=== PATIENT | male | born 1935 | race Caucasian/White ===

== ENCOUNTER 2017-02-04 07:36 | Outpatient (CLI) | payer MEDICARE, OTHER ==
[2017-02-04 12:53] LABS: HEMOGLOBIN A1C 0.58 g/dL
[2017-02-04 13:16] LABS: ALBUMIN/GLOBULIN RATIO 1.6 (1.0-2.2); BILIRUBIN,TOTAL 0.6 mg/dL (0.2-1.0); BUN - BLOOD UREA NITROGEN 19 mg/dL (6-20); CALCIUM 9.2 mg/dL (8.5-10.3); CARBON DIOXIDE - CO2 27 mmol/L (21-32); CHLORIDE 104 mmol/L (101-111); CHOLESTEROL 170 mg/dL; GFR - MDRD 72 (>89); GLUCOSE 94 mg/dL (70-100); HDL CHOLESTEROL 43 mg/dL; POTASSIUM 4.2 mmol/L (3.5-5.0); SODIUM 139 mmol/L (135-145); TOTAL PROTEIN 7.3 g/dL (6.7-8.2); TRIGLYCERIDES 214 mg/dL; VLDL CHOLESTEROL 43 mg/dL
== END 2017-02-04 07:37 | disposition home or self-care (01) ==
LOC: LAB.WCP 07:36
PROVIDERS: ATTEND Family Medicine
DX: R73.01 Impaired fasting glucose (principal); E78.5 Hyperlipidemia, unspecified
CPT/HCPCS: 36415; 80053; 80061; 83036

== ENCOUNTER 2017-09-16 08:25 | Outpatient (CLI) | payer MEDICARE, OTHER ==
[2017-09-16 13:53] LABS: ALBUMIN 4.8 g/dL (3.2-5.5); ALBUMIN/GLOBULIN RATIO 1.7 (1.0-2.2); ALKALINE PHOSPHATASE 43 IU/L (42-121); ALT ALANINE AMINOTRANSFERASE 33 IU/L (10-60); AST ASPARTATE AMINOTRANSFERASE 31 IU/L (10-42); BILIRUBIN,TOTAL 0.9 mg/dL (0.2-1.0); BUN - BLOOD UREA NITROGEN 16 mg/dL (6-20); CALCIUM 9.5 mg/dL (8.5-10.3); CARBON DIOXIDE - CO2 26 mmol/L (21-32); CHLORIDE 101 mmol/L (101-111); CHOL/HDL RATIO 3.5 (<5.0); CHOLESTEROL 171 mg/dL; CREATININE 0.9 mg/dL (0.6-1.2); GFR - MDRD 81 (>89); GLUCOSE 106 mg/dL (70-100); HDL CHOLESTEROL 49 mg/dL; LDL CHOLESTEROL,CALCULATED 91 mg/dL; LDL/HDL RATIO 1.9 (<3.6); SODIUM 136 mmol/L (135-145); TOTAL PROTEIN 7.7 g/dL (6.7-8.2); VLDL CHOLESTEROL 31 mg/dL
[2017-09-16 14:17] LABS: HB2 TOTAL 17.1 g/dL; HEMOGLOBIN A1C 0.59 g/dL; HEMOGLOBIN A1C % 5.3 % (4.6-6.2)
== END 2017-09-16 08:26 | disposition home or self-care (01) ==
LOC: LAB.WCP 08:25
PROVIDERS: ATTEND Family Medicine
DX: I25.10 Atherosclerotic heart disease of native coronary artery without angina pectoris (principal); R73.01 Impaired fasting glucose; I10 Essential (primary) hypertension; E78.5 Hyperlipidemia, unspecified
CPT/HCPCS: 36415; 80053; 80061; 83036; 83721

== ENCOUNTER 2019-06-02 10:47 | Outpatient (CLI) | payer MEDICARE, OTHER ==
[2019-06-02 11:20] LABS: BASOPHILS % (AUTO) 0.5 %; EOSINOPHILS # (AUTO) 0.1 10^3/uL (0.0-0.7); EOSINOPHILS % (AUTO) 1.2 %; HGB - HEMOGLOBIN 13.6 g/dL (14.0-18.0); LYMPHOCYTES # (AUTO) 1.1 10^3/uL (1.5-3.5); LYMPHOCYTES % (AUTO) 17.3 %; MEAN CORPUSCULAR HEMOGLOBIN 35.4 pg (27.0-31.0); MEAN CORPUSCULAR HGB CONC 35.2 g/dL (32.0-36.0); MEAN CORPUSCULAR VOLUME 100.5 fL (80.0-94.0); MEAN PLATELET VOLUME 9.2 fL (7.4-11.4); MONOCYTES # (AUTO) 0.7 10^3/uL (0.0-1.0); MONOCYTES % (AUTO) 10.1 %; NEUTROPHILS # (AUTO) 4.6 10^3/uL (1.5-6.6); NEUTROPHILS % (AUTO) 70.4 %; PLT - PLATELET COUNT 319 10^3/uL (130-450); RED BLOOD COUNT 3.84 10^6/uL (4.70-6.10); RED CELL DISTRIBUTION WIDTH 11.8 % (12.0-15.0); WHITE BLOOD COUNT 6.5 x10^3/uL (4.8-10.8)
[2019-06-02 11:47] LABS: ALBUMIN 3.7 g/dL (3.2-5.5); ALBUMIN/GLOBULIN RATIO 0.9 (1.0-2.2); BILIRUBIN,TOTAL 0.9 mg/dL (0.2-1.0); CALCIUM 9.2 mg/dL (8.5-10.3); CREATININE 0.8 mg/dL (0.6-1.2); URIC ACID 6.7 mg/dL (2.6-7.2)
--- NOTE | 2019-06-02 15:43 | XRAY Report ---
Reason: IDIOPATHIC GOUT, UNSPECIFIED SITE Procedure Date: 06/02/2019 Accession Number: [id number] / [id number] Procedure: XR - Foot 2 View RT CPT Code: Final Report FULL RESULT: EXAM: RIGHT FOOT RADIOGRAPHY EXAM DATE: 06/02/2019 11:44 AM. CLINICAL HISTORY: IDIOPATHIC GOUT, UNSPECIFIED SITE. COMPARISON: None. TECHNIQUE: 2 views. FINDINGS: Bones: Normal. No fractures or bone lesions. Joints: Degenerative changes first metatarsophalangeal joint with joint space narrowing, large dorsal osteophyte formation, subchondral sclerosis. Soft Tissues: Achilles tendon spur. No soft tissue swelling. IMPRESSION: 1. DJD first metatarsophalangeal joint with large dorsal spur RADIA
== END 2019-06-02 10:48 | disposition home or self-care (01) ==
LOC: LAB 10:47 → DI 10:48
PROVIDERS: ATTEND Family Medicine
DX: M19.071 Primary osteoarthritis, right ankle and foot (principal); M25.774 Osteophyte, right foot; R05 Cough; M10.00 Idiopathic gout, unspecified site; I10 Essential (primary) hypertension; E78.5 Hyperlipidemia, unspecified; M54.5 Low back pain
CPT/HCPCS: 36415; 80053; 84550; 85025; 85651

== ENCOUNTER 2020-10-22 08:51 | Outpatient (CLI) | payer MEDICARE, OTHER | END 2020-10-22 08:52 | disposition critical access hospital (66) | LOC: EMS 08:51 | PROVIDERS: ATTEND Emergency Medicine | DX: Z04.89 Encounter for examination and observation for other specified reasons (principal) | CPT/HCPCS: A0425; A0429 ==

== ENCOUNTER 2020-10-22 09:14 | Inpatient (IN) | payer MEDICARE, OTHER ==
[2020-10-22] MEDS ORDERED: SODIUM CHLORIDE 0.9% 1,000 ML IV STA (09:42)
--- NOTE | 2020-10-22 09:44 | ED Physician Documentation ---
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 He had his palpitations on and off this morning. Medics found the patient on the floor with his pants soaked with urine urine on the floor and some confusion. The patient's neighbor was the one that discovered the patient on the floor. The neighbor recognized there had been no newspaper pickup for 2 days and took his pérez and opened his neighbors door to find that he was on the floor. He called 911. Review of Systems Constitutional: denies: Fever Eyes: denies: Decreased vision Ears: denies: Ear pain Nose: denies: Rhinorrhea / runny nose, Congestion Throat: denies: Sore throat Cardiac: reports: Palpitations. denies: Chest pain / pressure, Pedal edema, Calf pain Respiratory: denies: Dyspnea, Cough, Wheezing GI: denies: Abdominal Pain, Nausea, Vomiting : denies: Dysuria, Frequency PD PAST MEDICAL HISTORY - Past Medical History Cardiovascular: High cholesterol, [place], Other Respiratory: None Endocrine/Autoimmune: None GI: None : None HEENT: Chronic vision loss, Chronic hearing loss Psych: None Musculoskeletal: Osteoarthritis, Gout, Chronic back pain Derm: None - Past Surgical History General: Colonoscopy Ortho: Spine surgery Cardiovascular: Coronary stent HEENT: Tonsil/Adenoidectomy - Present Medications Home Medications: Ambulatory Orders Medication Instructions Recorded Confirmed Aspirin 325 mg PO DAILY 08/23/14 10/22/20 Hydrochlorothiazide 25 mg PO DAILY 08/23/14 10/22/20 Metoprolol Succinate 50 mg PO BID 08/23/14 10/22/20 Simvastatin 20 mg PO DAILY 08/23/14 08/23/14 Tramadol HCl/Acetaminophen 1 each PO BID 08/23/14 10/22/20 [Ultracet Tablet] lisinopriL [Lisinopril] 10 mg PO DAILY 08/23/14 08/23/14 - Allergies Allergies/Adverse Reactions: Allergies Allergy/AdvReac Type Severity Reaction Status Date / Time No Known Drug Allergies Allergy Verified 10/22/20 09:32 - Social History Does the pt smoke?: No Smoking Status: Never smoker PD ED PE NORMAL - Vitals Vital signs reviewed: Yes (Hypertensive) - General General: No acute distress, Well developed/nourished, Other (The patient is oriented to place and can carry on a conversation extensively I did take him a while to answer who the president was and what year it was.) - HEENT HEENT: Atraumatic, PERRL, EOMI - Neck Neck: Supple, no meningeal sign, No bony TTP - Cardiac Cardiac: RRR, No murmur - Respiratory Respiratory: No respiratory distress, Clear bilaterally - Abdomen Abdomen: Normal bowel sounds, Soft, Non tender, Non distended, No organomegaly - Back Back: No CVA TTP, No spinal TTP - Derm Derm: Normal color, Warm and dry, No rash - Extremities Extremities: No deformity, No edema - Neuro Neuro: Alert and oriented X 3, bi architect 2-12 intact, No motor deficit, No sensory deficit, Normal speech Eye Opening: Spontaneous Motor: Obeys Commands Verbal: Oriented GCS Score: 15 - Psych Psych: Normal mood, Normal affect Results - Vitals Vitals: Vital Signs - 24 hr 10/22/20 10/22/20 09:17 12:00 Temperature 36.0 C L Heart Rate 76 72 Respiratory 18 17 Rate Blood Pressure 154/94 H 153/90 H O2 Saturation 100 98 Oxygen O2 Source Room air - EKG (time done) 0945 Rate: Rate (enter#) Rhythm: NSR [place]: LAD Ischemia: Non specific changes Compare to prior EKG: Old EKG unavailable Computer interpretation: Agree with computer - Labs Labs: Laboratory Tests 10/22/20 10/22/20 10/22/20 09:52 09:52 09:52 WBC 8.2 RBC 3.99 L Hgb 14.3 Hct 41.2 L MCV 103.3 H MCH 35.8 H MCHC 34.7 RDW 13.7 Plt Count 145 MPV 9.5 Neut # (Auto) 6.7 H Lymph # (Auto) 0.6 L [place] # (Auto) 0.7 Eos # (Auto) 0.2 Baso # (Auto) 0.0 Absolute Nucleated RBC 0.00 Band Neuts % (Manual) Not Reportable Abnorm Lymph % (Manual) Not Reportable Nucleated RBC % 0.0 Neutrophils # (Manual) Not Reportable Lymphocytes # (Manual) Not Reportable Monocytes # (Manual) Not Reportable Eosinophils # (Manual) Not Reportable Basophils # (Manual) Not Reportable Differential Comment MANUAL=AUTO DIFF Manual Slide Review Indicated Platelet Estimate NORMAL (130-450,000) Platelet Morphology NORMAL APPEARANCE RBC Morph Micro Appear NORMAL APPEARANCE Sodium 139 Potassium 4.2 Chloride 104 Carbon Dioxide 16 L Anion Gap 19.0 H BUN 16 Creatinine 1.0 Estimated GFR (MDRD) 71 L Glucose 159 H Lactic Acid Calcium 9.3 Total Bilirubin 2.3 H AST 96 H ALT 55 Alkaline Phosphatase 55 Troponin I High Sens 32.9 H* Total Protein 7.2 Albumin 4.4 Globulin 2.8 Albumin/Globulin Ratio 1.6 Lipase 26 Urine Color Urine Clarity Urine pH Ur Specific [place] Urine Protein Urine Glucose (UA) Urine Ketones Urine Occult Blood Urine Nitrite Urine Bilirubin Urine Urobilinogen Ur Leukocyte Esterase Urine RBC Urine WBC Ur Squamous Epith Cells Urine Bacteria Ur Microscopic Review Urine Culture Comments Nasal Adenovirus (PCR) Nasal B. parapertussis DNA (PCR) Nasal Coronavir 229E PCR Nasal Coronavir HKU1 PCR Nasal Coronavir NL63 PCR Nasal Coronavir OC43 PCR Nasal Enterovir/Rhinovir PCR Nasal Influenza B PCR Nasal Influenza A PCR Nasal Parainfluen 1 PCR Nasal Parainfluen 2 PCR Nasal Parainfluen 3 PCR Nasal Parainfluen 4 PCR Nasal RSV (PCR) Nasal B.pertussis DNA PCR Nasal C.pneumoniae (PCR) Brown Human Metapneumo PCR Nasal M.pneumoniae (PCR) Nasal SARS-CoV-2 (PCR) 10/22/20 10/22/20 10/22/20 09:52 11:16 12:15 WBC RBC Hgb Hct MCV MCH MCHC RDW Plt Count MPV Neut # (Auto) Lymph # (Auto) [place] # (Auto) Eos # (Auto) Baso # (Auto) Absolute Nucleated RBC Band Neuts % (Manual) Abnorm Lymph % (Manual) Nucleated RBC % Neutrophils # (Manual) Lymphocytes # (Manual) Monocytes # (Manual) Eosinophils # (Manual) Basophils # (Manual) Differential Comment Manual Slide Review Platelet Estimate Platelet Morphology RBC Morph Micro Appear Sodium Potassium Chloride Carbon Dioxide Anion Gap BUN Creatinine Estimated GFR (MDRD) Glucose Lactic Acid 2.3 H Calcium Total Bilirubin AST ALT Alkaline Phosphatase Troponin I High Sens Total Protein Albumin Globulin Albumin/Globulin Ratio Lipase Urine Color YELLOW Urine Clarity CLEAR Urine pH 6.0 Ur Specific [place] 1.025 Urine Protein TRACE Urine Glucose (UA) NEGATIVE Urine Ketones >=80 H Urine Occult Blood MODERATE H Urine Nitrite NEGATIVE Urine Bilirubin NEGATIVE Urine Urobilinogen 0.2 (NORMAL) Ur Leukocyte Esterase NEGATIVE Urine RBC 6-10 H Urine WBC 0-3 Ur Squamous Epith Cells NONE SEEN Urine Bacteria Rare Ur Microscopic Review INDICATED Urine Culture Comments NOT INDICATED Nasal Adenovirus (PCR) NOT DETECTED Nasal B. parapertussis DNA (PCR) DETECTED A Nasal Coronavir 229E PCR NOT DETECTED Nasal Coronavir HKU1 PCR NOT DETECTED Nasal Coronavir NL63 PCR NOT DETECTED Nasal Coronavir OC43 PCR NOT DETECTED Nasal Enterovir/Rhinovir PCR NOT DETECTED Nasal Influenza B PCR NOT DETECTED Nasal Influenza A PCR NOT DETECTED Nasal Parainfluen 1 PCR NOT DETECTED Nasal Parainfluen 2 PCR NOT DETECTED Nasal Parainfluen 3 PCR NOT DETECTED Nasal Parainfluen 4 PCR NOT DETECTED Nasal RSV (PCR) NOT DETECTED Nasal B.pertussis DNA PCR NOT DETECTED Nasal C.pneumoniae (PCR) NOT DETECTED Brown Human Metapneumo PCR NOT DETECTED Nasal M.pneumoniae (PCR) NOT DETECTED Nasal SARS-CoV-2 (PCR) NOT DETECTED 10/22/20 12:30 WBC RBC Hgb Hct MCV MCH MCHC RDW Plt Count MPV Neut # (Auto) Lymph # (Auto) [place] # (Auto) Eos # (Auto) Baso # (Auto) Absolute Nucleated RBC Band Neuts % (Manual) Abnorm Lymph % (Manual) Nucleated RBC % Neutrophils # (Manual) Lymphocytes # (Manual) Monocytes # (Manual) Eosinophils # (Manual) Basophils # (Manual) Differential Comment Manual Slide Review Platelet Estimate Platelet Morphology RBC Morph Micro Appear Sodium Potassium Chloride Carbon Dioxide Anion Gap BUN Creatinine Estimated GFR (MDRD) Glucose Lactic Acid Calcium Total Bilirubin AST ALT Alkaline Phosphatase Troponin I High Sens 38.0 H* Total Protein Albumin Globulin Albumin/Globulin Ratio Lipase Urine Color Urine Clarity Urine pH Ur Specific [place] Urine Protein Urine Glucose (UA) Urine Ketones Urine Occult Blood Urine Nitrite Urine Bilirubin Urine Urobilinogen Ur Leukocyte Esterase Urine RBC Urine WBC Ur Squamous Epith Cells Urine Bacteria Ur Microscopic Review Urine Culture Comments Nasal Adenovirus (PCR) Nasal B. parapertussis DNA (PCR) Nasal Coronavir 229E PCR Nasal Coronavir HKU1 PCR Nasal Coronavir NL63 PCR Nasal Coronavir OC43 PCR Nasal Enterovir/Rhinovir PCR Nasal Influenza B PCR Nasal Influenza A PCR Nasal Parainfluen 1 PCR Nasal Parainfluen 2 PCR Nasal Parainfluen 3 PCR Nasal Parainfluen 4 PCR Nasal RSV (PCR) Nasal B.pertussis DNA PCR Nasal C.pneumoniae (PCR) Brown Human Metapneumo PCR Nasal M.pneumoniae (PCR) Nasal SARS-CoV-2 (PCR) Procedures - IVC sono (time) 0935 Bedside IVC sono: IVC measures (cm) (0.82), Dehydration (est 2+ liter deficit) PD MEDICAL DECISION MAKING - ED course Complexity details: reviewed results, re-evaluated patient, considered differential, d/w patient ED course: 85-year-old male on no medications no allergies developed palpitations this morning the recurred and he was found on his floor by his neighbors. The patient is found to be dehydrated on interrogation the inferior vena cava and saline is begun. A work-up is ensued.He has a widened mediastinum on plain film of the chest looks like a torturous old aorta. He has elevation his troponin as well and we have done a CT angio of the chest to look at the aorta. With anticipation of admission a respiratory PCR is obtained to rule out COVID-19 for protection of the patient and staff. The patient's CT angio of the chest showed a normal-appearing aorta. The work up implicated the heart with a mild elevation in the sensitive troponin. The patient appears to be responding to IV hydration. Infectious etiology was not discovered on routine labs but the Resp PCR showed pertusis and the patient appears particularly symptom free. Dr. Salinas is consulted in the case and agrees to admit the patient to observation for his syncope and requests we obtain CT of the head. Departure - Departure Disposition: ED Place in Observation Clinical Impression: Syncope and collapse, Dehydration, Myocardial ischemia Condition: Stable
[2020-10-22 10:03] LABS: BASOPHILS % (AUTO) 0.1 %; EOSINOPHILS # (AUTO) 0.2 10^3/uL (0.0-0.7); EOSINOPHILS % (AUTO) 1.8 %; HCT - HEMATOCRIT 41.2 % (42.0-52.0); HGB - HEMOGLOBIN 14.3 g/dL (14.0-18.0); LYMPHOCYTES # (AUTO) 0.6 10^3/uL (1.5-3.5); LYMPHOCYTES % (AUTO) 7.5 %; MEAN CORPUSCULAR HEMOGLOBIN 35.8 pg (27.0-31.0); MEAN CORPUSCULAR HGB CONC 34.7 g/dL (32.0-36.0); MEAN CORPUSCULAR VOLUME 103.3 fL (80.0-94.0); MEAN PLATELET VOLUME 9.5 fL (7.4-11.4); MONOCYTES # (AUTO) 0.7 10^3/uL (0.0-1.0); MONOCYTES % (AUTO) 8.1 %; NEUTROPHILS # (AUTO) 6.7 10^3/uL (1.5-6.6); NEUTROPHILS % (AUTO) 82.3 %; PLT - PLATELET COUNT 145 10^3/uL (130-450); RED BLOOD COUNT 3.99 10^6/uL (4.70-6.10); RED CELL DISTRIBUTION WIDTH 13.7 % (12.0-15.0); WHITE BLOOD COUNT 8.2 x10^3/uL (4.8-10.8)
[2020-10-22 10:08] LABS: SLIDE REVIEW? Indicated
[2020-10-22 10:17] LABS: ALBUMIN 4.4 g/dL (3.2-5.5); ALBUMIN/GLOBULIN RATIO 1.6 (1.0-2.2); BILIRUBIN,TOTAL 2.3 mg/dL (0.2-1.0); CALCIUM 9.3 mg/dL (8.5-10.3); POTASSIUM 4.2 mmol/L (3.5-5.0); TOTAL PROTEIN 7.2 g/dL (6.7-8.2)
--- NOTE | 2020-10-22 10:22 | XRAY Report ---
PROCEDURE: Chest 1 View X-Ray INDICATIONS: chest pain TECHNIQUE: One view of the chest was acquired. COMPARISON: 05/02/2015 FINDINGS: Surgical changes and devices: None. Lungs and pleura: No pleural effusions or pneumothorax. Lungs are clear. Mediastinum: Aorta is tortuous and unfolded. Contour is more prominent than on the previous study, al though this may be secondary to portable technique. Heart size is normal. Bones and chest wall: No suspicious bony lesions. Overlying soft tissues appear unremarkable. IMPRESSION: 1. Tortuous, unfolded aorta. If clinically suspect dissection, would recommend CT angiography of the aorta. 2. No evidence acute pulmonary process. Above discussed with ROSA FRIAS at the time of dictation on 10/22/2020 at 1020 hours. Reviewed by: Joaquim Schrader MD on 10/22/2020 10:20 AM PDT Approved by: Joaquim Schrader MD on 10/22/2020 10:20 AM PDT Station ID: [id number]
[2020-10-22 10:41] LABS: DIFFERENTIAL COMMENT MANUAL=AUTO DIFF; PLATELET ESTIMATE, MANUAL NORMAL (130-450,000) (NORMAL); PLATELET MORPHOLOGY NORMAL APPEARANCE (NORMAL); RBC MORPHOLOGY (MULTIPLE) NORMAL APPEARANCE (NORMAL)
[2020-10-22] MEDS ORDERED: IOVERSOL 320 100 ML VIAL IVP ONE ×2 (10:56→11:50)
--- NOTE | 2020-10-22 11:43 | CT Report ---
PROCEDURE: ANGIO CHEST W/WO INDICATIONS: Evaluation of widened mediastinum on chest radiography earlier today. This exam is inte nded to exclude aortic dissection or aneurysm suggested by widened mediastinum on chest radiography. CONTRAST: IV CONTRAST: Optiray 320 ml: 80 PO CONTRAST: *NO PO CONTRAST TECHNIQUE: After the administration of intravenous contrast, 2 mm thick sections acquired from the pulmonary api simran to the posterior costophrenic angles. 3-dimensional maximum intensity projection (MIP) coronal a nd sagittal reformats were then acquired through the thorax. For radiation dose reduction, the follow ing was used: automated exposure control, adjustment of mA and/or kV according to patient size. COMPARISON: Same day chest radiograph FINDINGS: Image quality: Excellent. Aorta: Tortuous but nonaneurysmal thoracic aorta with atherosclerotic plaque and calcification beginn ing at the level of the arch and extending through the entire distal aorta. No hemodynamically signif icant stenosis of the aorta. Atherosclerotic plaque and calcification extend into the arch branch ves da origins. Lungs and pleura: Lungs are clear. No pleural effusions or pneumothorax. Central and peripheral ai rways are patent. Mediastinum: Normal heart size. No pericardial effusion. Four-vessel coronary atherosclerosis. No med iastinal or hilar adenopathy. Thoracic aorta is normal in caliber and enhancement. Esophagus is nor mal in caliber, without hiatal hernia. Bones and chest wall: No suspicious bony lesions. Ribs and thoracic spine appear intact throughout. The thyroid is normal. No axillary or supraclavicular adenopathy. Abdomen: Visualized upper abdominal solid organs appear normal in the early arterial phase of enhanc ement. IMPRESSION: Tortuous and atherosclerotic but nonaneurysmal thoracic aorta with no findings of dissection or other acute process in the chest. Moderate 4 vessel coronary atherosclerosis. At least mild to moderate atherosclerotic calcification of the arch branch vessels and major visceral branches of the abdominal aorta. Reviewed by: Zachary Cadena MD on 10/22/2020 11:41 AM PDT Approved by: Zachary Cadena MD on 10/22/2020 11:41 AM PDT Station ID: [id number]
[2020-10-22 12:21] LABS: B. PARAPERTUSSIS- RESP PCR PAN DETECTED; B. PERTUSSIS- RESP PCR PANEL NOT DETECTED; C. PNEUMONIAE- RESP PCR PANEL NOT DETECTED; CORONAVIRUS 229E-RESP PCR NOT DETECTED; CORONAVIRUS HKU1-RESP PCR NOT DETECTED; CORONAVIRUS NL63-RESP PCR NOT DETECTED; CORONAVIRUS OC43-RESP PCR NOT DETECTED; HUMAN METAPNEUMOVIRUS NOT DETECTED; INFLUENZA A- RESP PCR PANEL NOT DETECTED; INFLUENZA B - RESP PCR PANEL NOT DETECTED; M. PNEUMONIAE- RESP PCR PANEL NOT DETECTED; PARAINFLUENZA VIRUS 1 NOT DETECTED; PARAINFLUENZA VIRUS 2 NOT DETECTED; PARAINFLUENZA VIRUS 3 NOT DETECTED; PARAINFLUENZA VIRUS 4 NOT DETECTED; RHINOVIRUS/ENTEROVIRUS NOT DETECTED; RSV- RESP PCR PANEL NOT DETECTED; SARS-CoV-2 -RESP PCR PANEL NOT DETECTED
[2020-10-22 12:25] LABS: GLUCOSE, URINE (UA) NEGATIVE (NEGATIVE); KETONES,URINE (UA) >=80 mg/dL (NEGATIVE); LEUKOCYTE ESTERASE, URINE NEGATIVE (NEGATIVE); NITRITE,URINE NEGATIVE (NEGATIVE); OCCULT BLOOD,URINE MODERATE (NEGATIVE); PROTEIN,URINE TRACE mg/dL (NEGATIVE); UROBILINOGEN,URINE 0.2 (NORMAL) E.U./dL (NORMAL)
[2020-10-22 12:31] LABS: CLARITY,URINE CLEAR (CLEAR)
[2020-10-22 12:33] LABS: BILIRUBIN,URINE NEGATIVE (NEGATIVE); ICTOTEST,URINE NEGATIVE
[2020-10-22 12:40] LABS: BACTERIA,URINE Rare /HPF (None Seen); SQUAMOUS EPITHELIAL CELL,UR NONE SEEN (<= Few); WBC,URINE 0-3 /HPF (0-3)
--- NOTE | 2020-10-22 14:34 | CT Report ---
PROCEDURE: HEAD WO INDICATIONS: Acute altered mental status TECHNIQUE: Noncontrast 4.5 mm thick angled axial sections acquired from the foramen magnum to the vertex. For r adiation dose reduction, the following was used: automated exposure control, adjustment of mA and/or kV according to patient size. COMPARISON: None FINDINGS: Image quality: Excellent. CSF spaces: Basal cisterns are patent. No extra-axial fluid collections. The ventricles are symmet curtis in size and shape. Brain: No intracranial bleeds or masses. There is cerebral volume loss for age, with resultant vent ricular and sulcal prominence. There are periventricular and deep white matter chronic small vessel ischemic changes. There is intracranial internal carotid artery and vertebral artery atherosclerosis . Skull and face: Calvarium appears intact, without suspicious lesions. Calvarium is intact, without s uspicious lesions. Chronic appearing bilateral nasal bone fractures. Sinuses: Visualized sinuses and mastoids are clear. IMPRESSION: No acute intracranial disease process. Reviewed by: Hayley Gutierrez MD, PhD on 10/22/2020 2:32 PM PDT Approved by: Hayley Gutierrez MD, PhD on 10/22/2020 2:32 PM PDT Station ID: [id number]
[2020-10-22] MEDS ORDERED: ACETAMINOPHEN 325 MG TABLET PO PRN (14:40)
[2020-10-22] MEDS ORDERED: ONDANSETRON ODT 4 MG TABLET TL PRN (14:40)
[2020-10-22] MEDS ORDERED: SODIUM CHLORIDE FLUSH 0.9% 10 ML SYRINGE IVP PRN (14:40)
[2020-10-22] MEDS ORDERED: LACTATED RINGERS 1,000 ML IV SCH (15:00)
--- NOTE | 2020-10-22 15:23 | HISTORY & PHYSICAL EXAMINATION ---
Chief Complaint - Chief Complaint Chief Complaint: Confusion History of Present Illness - Admitted From Admitted From:: Home - History Obtained From Records Reviewed: Yes History obtained from: Patient, ER Physician, EMR Exam Limitations: Patient is confused - History of Present Illness HPI Comment/Other: This is a 85-year-old male with what appears to be a past medical history significant for hypertension who presents today from home after being found on the ground by his neighbor. History the patient is limited as he is confused. He tells me that he has been in the hospital now for about 3 days. He cannot tell me why he is here other than that he is sick. When I tell him that he has only been here for a few hours, he once again is adamant that he has been here for at least 2 to 3 days. He does admit to feeling confused. He reports no chest pain, dyspnea, fever, chills. Denies any abdominal pain, nausea, vomiting, dysuria, urgency. Reports no focal weakness, headache, change in vision. He tells me he has no significant medical history and denies any cardiac disease. He is currently not taking any medications. He denies a history of seizures. He lives at home alone right now as his is at a nursing facility and [place]. He tells me that he normally is quite active and independent. He still drives. The patient told the ER provider that when his cat went into the attic this morning, he crawled up into the ladder and developed palpitations and so he stopped to rest and when the palpitations resolved, he went back down to lay on the floor. Neighbor reportedly found him on the floor and when EMS got there, they found him incontinent of urine, weak and confused. In the emergency department, he is found to be afebrile, heart rate in the 70s, blood pressure in the 150s over 80s. He was not tachypneic and saturating well on room air. His labs were significant for a bicarbonate of 16, anion gap of 19. His lactic acid was 2.3. AST was 96 and ALT was 55. His initial troponin was 32.9 and repeat had increased to 38. His urinalysis revealed moderate occult blood and 2-10 RBCs. 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 His chest x-ray was unremarkable. He underwent a CT angiogram given the appearance of the aorta on chest x-ray and this revealed no acute abnormalities. CT of the head was unremarkable. Given the patient's confusion, elevated troponin, medicine was consulted for admission. I did discuss goals of care with patient and he states that he would want to be DNR. He states the important thing for him is his quality of life. We dis cussed that at his age, he likely would not have the same quality of life as he currently has if he were to have a cardiac arrest. We discussed that being a DNR would likely be within his wishes and he was agreeable to this. History - Past Medical History Cardiovascular: reports: High cholesterol Respiratory: reports: None Endocrine/Autoimmune: reports: None GI: reports: None : reports: None HEENT: reports: Chronic vision loss, Chronic hearing loss Psych: reports: None Musculoskeletal: reports: Osteoarthritis, Gout, Chronic back pain Derm: reports: None MRSA Hx?: No - Past Surgical History General: reports: Colonoscopy Ortho: reports: Spine surgery Cardiovascular: reports: Coronary stent HEENT: reports: Tonsil/Adenoidectomy - Family & Social History Family History Comment/Other: He reports both his parents at an older age due to cardiac problems. They were both smokers. Living arrangement: At home Living Situation: Alone Social History Notes: He currently lives at home alone as his is at a nursing facility in [place]. He denies smoking. He reports drinking a glass of scotch on a daily basis. 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 Meds/Allgy - Home Medications Home Medications: Ambulatory Orders Medication Instructions Recorded Confirmed No Known Home Medications 10/22/20 10/22/20 - Allergies Allergies/Adverse Reactions: Allergies Allergy/AdvReac Type Severity Reaction Status Date / Time No Known Drug Allergies Allergy Verified 10/22/20 09:32 Review of Systems - Constitutional Constitutional: denies: Fatigue, Fever, Chills, Weakness - Eyes Eyes: denies: Blurred vision - Cardiovascular Cariovascular: denies: Palpitations, Chest pain, Syncope, Exertional dyspnea, D ecr. exercise tolerance - Respiratory Respiratory: denies: Cough, SOB at rest, SOB with exertion - Gastrointestinal Gastrointestinal: denies: Abdominal pain, Diarrhea, Nausea, Vomiting - Genitourinary Genitourinary: denies: Dysuria, Frequency, Urgency, Hematuria - Musculoskeletal Musculoskeletal: denies: Limited range of motion - Neurological Neurological: reports: Other (Confusion.). denies: General weakness, Focal weakness, Headache, Dizziness, Numbness - Hematologic/Lymphatic Hematologic/Lymphatic: denies: Anemia - All Other Systems All Other Systems: reports: Reviewed and negative Prior Level of Functionality: He reports being independent with his ADLs. Exam - Vital Signs Reviewed Vital Signs: Yes Vital Signs: Vital Signs x48h Temp Pulse Resp BP Pulse Ox 10/22/20 14:29 80 20 151/84 H 99 10/22/20 12:00 72 17 153/90 H 98 10/22/20 09:17 36.0 C L 76 18 154/94 H 100 - Physical Exam General Appearance: positive: No acute distress, Alert Eyes Bilateral: positive: Normal inspection, PERRL, Conjunctivae nml ENT: positive: Dry mucous membranes. negative: No signs of dehydration Neck: positive: Nml inspection Respiratory: positive: No respiratory distress. negative: Wheezes, Rales, Rhonchi Cardiovascular: positive: Regular rate & rhythm, No murmur. negative: Tachycardia Abdomen: positive: Non-tender, No distention. negative: Tenderness, Guarding, Rebound Skin: positive: Warm, Dry Extremities: positive: No pedal edema Neurologic/Psychiatric: positive: Other (He is oriented to self and location but he does not know which hospital. He knows it is October but thought it was 2019. He is able to move all 4 extremities without any obvious focal deficits.). negative: Motor nml, Disoriented to person, Facial droop, Slurred/abnml speech Conclusion/Plan - Problem List (1) Altered mental status Conclusion/Plan: He is currently confused although the etiology of this is not clear. He may potentially be postictal if he had a seizure earlier this morning. CT the head was unremarkable. There is no obvious evidence of infection at this time. We will check ammonia, TSH. We will avoid sedatives. (2) Syncope and collapse Conclusion/Plan: His history is concerning for syncope. He may have also potentially had a seizure given the urinary incontinence. His EKG reveals a sinus rhythm with a left anterior fascicular block. No ischemic changes. We will check orthostatics and monitor him on telemetry. Will obtain echocardiogram. We will observe overnight for evidence of seizures. His CT of the head was fortunately unremarkable. We cannot obtain MRI as it is not available at our facility. We will check a CK given his mildly elevated AST. (3) Elevated troponin Conclusion/Plan: His troponin is mildly elevated. His EKG did not suggest ischemia. Suspect this is likely demand ischemia. We will trend his troponin and monitor on telemetry. Check echocardiogram. (4) Hypertension Conclusion/Plan: He is currently hypertensive with systolic in the 150s. Although he denies being on any medication at home, it appears he is on a thiazide and metoprolol. We will resume these once confirmed by pharmacy. (5) Dehydration Conclusion/Plan: He does appear dehydrated on exam and lactic acid is mildly elevated. His AST is also slightly elevated which is concerning for possible rhabdomyolysis. He has already received 2 L of IV fluids in the emergency department. We will continue him on maintenance IV fluids. Recheck lactic. We will check a CK. - Lab Results Lab results reviewed: Yes Fish Bones: 10/22/20 09:52 10/22/20 09:52 - Diagnostic Imaging Results Diagnostic Imaging Results: positive: Final report reviewed - EKG Results EKG Interpreted Independently: Yes EKG Findings: His EKG reveals a sinus rhythm with a left anterior fascicular block. No ischemic changes. Core Measures - Anticipated LOS I expect patient to be DC'd or transferred within 96 hours.: Yes - Issues Hospital Issues and Management Plan: 85-year-old male presents after being found down at home by EMS. He is found to be confused and have elevated troponin. We will place in observation for further work-up and IV hydration. - DVT/VTE - Prophylaxis VTE/DVT Device ordered at admit?: Yes VTE/DVT Prophylaxis med ordered at admit?: Yes
--- NOTE | 2020-10-22 16:10 | PHARMACY PROGRESS NOTE ---
- Best Possible Medication History Admit Date and Time: 10/22/20 1505 Processed by: Pharmacy Medication History completed: Yes Patient Interview: Completed As the person ultimately responsible for medication therapy, providers are able to order a medication from an existing home medication list in [facility] via the "Reconcile Routine" prior to Confirmation of that medication by field support specialist. Such practice is discouraged except when the physician, in their clinical joselo gment, deems that a medical need exists for a medication without regard to previous use.
[2020-10-22] MEDS: LACTATED RINGERS 1,000 ML IV SCH ×2 (16:42→20:44)
[2020-10-22] MEDS: SODIUM CHLORIDE FLUSH 0.9% 10 ML SYRINGE IVP SCH (16:42)
[2020-10-23] MEDS: SODIUM CHLORIDE FLUSH 0.9% 10 ML SYRINGE IVP SCH ×4 (00:18→23:45)
[2020-10-23] MEDS: LACTATED RINGERS 1,000 ML IV SCH ×5 (01:44→22:30)
[2020-10-23 05:27] LABS: BASOPHILS % (AUTO) 0.1 %; EOSINOPHILS % (AUTO) 0.3 %; HCT - HEMATOCRIT 38.2 % (42.0-52.0); HGB - HEMOGLOBIN 13.6 g/dL (14.0-18.0); LYMPHOCYTES # (AUTO) 1.2 10^3/uL (1.5-3.5); LYMPHOCYTES % (AUTO) 17.1 %; MEAN CORPUSCULAR HEMOGLOBIN 36.3 pg (27.0-31.0); MEAN CORPUSCULAR HGB CONC 35.6 g/dL (32.0-36.0); MEAN CORPUSCULAR VOLUME 101.9 fL (80.0-94.0); MEAN PLATELET VOLUME 9.5 fL (7.4-11.4); MONOCYTES # (AUTO) 0.5 10^3/uL (0.0-1.0); MONOCYTES % (AUTO) 7.6 %; NEUTROPHILS # (AUTO) 5.3 10^3/uL (1.5-6.6); NEUTROPHILS % (AUTO) 74.5 %; PLT - PLATELET COUNT 146 10^3/uL (130-450); RED BLOOD COUNT 3.75 10^6/uL (4.70-6.10); RED CELL DISTRIBUTION WIDTH 13.5 % (12.0-15.0); WHITE BLOOD COUNT 7.1 x10^3/uL (4.8-10.8)
[2020-10-23 05:42] LABS: CALCIUM 9.1 mg/dL (8.5-10.3); CREATININE 0.7 mg/dL (0.6-1.2); POTASSIUM 3.7 mmol/L (3.5-5.0)
[2020-10-23] MEDS: ENOXAPARIN 40 MG/0.4 ML SYRINGE SUBQ SCH (08:49)
[2020-10-23] MEDS ORDERED: AZITHROMYCIN 250 MG TABLET PO STA (10:32)
--- NOTE | 2020-10-23 10:37 | PROVIDER PROGRESS NOTE ---
Assessment/Plan - Problem List (1) Rhabdomyolysis Assessment/Plan: The CK was 2570 at admission and is still elevated today at 1821. Will admit to Inpt status. Continue iv fluids. Follow CK daily. Avoid nephrotoxins. (2) Bordetella parapertussis infection Assessment/Plan: His admission Resp panel was done to screen for COVID. COVID result is neg, but he is pos for Bordetella Parapertussis. I contacted Kathy Wilson, [facility] with this result, DO will be notified. He has a deep, nonproductive cough which he claims is just "clearing his throat". He is not desaturating. A CXR was read as no infiltrate, but the pt is dehydrated, so there could be an infiltrate show up once he is hydrated. Resp isolation precautions ordered. Will treat with a course of Zithromax. Will repeat CXR tomorrow. (3) Collapse Assessment/Plan: He was "found down" by neighbor. No syncope or seizure was winessed, but he was incontinent of urine. If he had had a whoopong cough paroxysm, causing hypoxia, may have had a seizure. An echo is pending, for work-up of possible syncope. Telemetry continues. Will start to check orthostatic VS, now that he is more awake. Will also get PT eval. (4) Dehydration Assessment/Plan: He was prerenal by labs and remains so. Continue iv fluids. Avoid nephrotoxins. (5) Altered mental status Qualifiers: Altered mental status type: disorientation Qualified Code(s): R41.0 - Disorientation, unspecified Assessment/Plan: He was confused at admission. Today the DPOA was here and he could see the amount of memory trouble the pt had. I suspect there is dementia, since he said "I don't know" to nearly every question I asked the patient. He had no knowledge of how he ended up on the floor of his condo. He thinks he takes no meds. He does not know the3 name of his PCP. Will get OT consult for cognitive eval. I suspect there will be no more driving a vehicle allowed, which I told the DPOA, at bedside today. The [facility] is already arranging a different housing arrangement: to live with his at [facility], where she has been for a year. - Current Meds Current Meds: Current Medications Generic Name Dose Route Start Last Admin Trade Name Freq PRN Reason Stop Dose Admin Enoxaparin Sodium 40 mg 10/23/20 09:00 10/23/20 08:49 Enoxaparin 40 Mg/0.4 Ml Syringe SUBQ 40 mg DAILY STEVE Administration Lactated Ringer's 1,000 mls @ 200 mls/hr 10/22/20 16:04 10/23/20 06:55 Lr IV 200 mls/hr .Q5H STEVE Administration Sodium Chloride 10 ml 10/22/20 17:00 10/23/20 08:49 Sodium Chloride Flush 0.9% 10 Ml Syringe IVP Not Given 0100,0900,1700 STEVE - Lab Result Fish Bone Diagrams: 10/23/20 05:14 10/23/20 05:14 - Additional Planning My Orders: My Active Orders 10/23/20 10:32 Azithromycin [Zithromax] 500 mg PO ONCE STA 10/24/20 09:00 Azithromycin [Zithromax] 250 mg PO DAILY Subjective - Subjective Patient Reports: Resting Comfortably, No Complaints Nursing Reports: Cough Objective Vital Signs: Vital Signs - 24 hr 10/22/20 10/22/20 10/22/20 12:00 14:29 15:46 Temperature 36.8 C Heart Rate 72 80 Heart Rate [ Brachial] Heart Rate [ 74 Radial] Respiratory 17 20 18 Rate Blood Pressure 153/90 H 151/84 H Blood Pressure 121/71 [Right Brachial artery] O2 Saturation 98 99 100 10/22/20 10/23/20 10/23/20 20:05 00:00 05:17 Temperature 36.3 C L 36.3 C L 36.4 C L Heart Rate Heart Rate [ 80 72 68 Brachial] Heart Rate [ Radial] Respiratory 20 18 18 Rate Blood Pressure Blood Pressure 143/71 H 140/66 H 143/72 H [Right Brachial artery] O2 Saturation 98 100 100 10/23/20 07:45 Temperature 36.3 C L Heart Rate Heart Rate [ 66 Brachial] Heart Rate [ Radial] Respiratory 18 Rate Blood Pressure Blood Pressure 145/82 H [Right Brachial artery] O2 Saturation 98 Oxygen O2 Source Room air I&O (Last 24 Hrs): Intake and Output Totals x24h 10/21/20 10/22/20 10/23/20 23:59 23:59 23:59 Intake Total 2378 2000 Output Total 300 300 Balance 2078 1700 General: Alert HEENT: EOMI, Mucous membr. moist/pink Neck: Supple, No JVD Neuro: Alert, Disoriented, Non Focal Cardiovascular: No murmurs Respiratory: No respiratory distress, Rhonchi Abdomen: Normal bowel sounds, Soft Extremities: No clubbing, No cyanosis, No edema, No tenderness/swelling - Results Results: Laboratory Results WBC 7.1 x10^3/uL (4.8-10.8) 10/23/20 05:14 RBC 3.75 10^6/uL (4.70-6.10) L 10/23/20 05:14 Hgb 13.6 g/dL (14.0-18.0) L 10/23/20 05:14 Hct 38.2 % (42.0-52.0) L 10/23/20 05:14 MCV 101.9 fL (80.0-94.0) H 10/23/20 05:14 MCH 36.3 pg (27.0-31.0) H 10/23/20 05:14 MCHC 35.6 g/dL (32.0-36.0) 10/23/20 05:14 RDW 13.5 % (12.0-15.0) 10/23/20 05:14 Plt Count 146 10^3/uL (130-450) 10/23/20 05:14 MPV 9.5 fL (7.4-11.4) 10/23/20 05:14 Neut # (Auto) 5.3 10^3/uL (1.5-6.6) 10/23/20 05:14 Lymph # (Auto) 1.2 10^3/uL (1.5-3.5) L 10/23/20 05:14 [place] # (Auto) 0.5 10^3/uL (0.0-1.0) 10/23/20 05:14 Eos # (Auto) 0.0 10^3/uL (0.0-0.7) 10/23/20 05:14 Baso # (Auto) 0.0 10^3/uL (0.0-0.1) 10/23/20 05:14 Absolute Nucleated RBC 0.00 x10^3/uL 10/23/20 05:14 Band Neuts % (Manual) Not Reportable 10/22/20 09:52 Abnorm Lymph % (Manual) Not Reportable 10/22/20 09:52 Nucleated RBC % 0.0 /100WBC 10/23/20 05:14 Neutrophils # (Manual) Not Reportable 10/22/20 09:52 Lymphocytes # (Manual) Not Reportable 10/22/20 09:52 Monocytes # (Manual) Not Reportable 10/22/20 09:52 Eosinophils # (Manual) Not Reportable 10/22/20 09:52 Basophils # (Manual) Not Reportable 10/22/20 09:52 Differential Comment MANUAL=AUTO DIFF 10/22/20 09:52 Manual Slide Review Indicated 10/22/20 09:52 Platelet Estimate NORMAL (130-450,000) (NORMAL) 10/22/20 09:52 Platelet Morphology NORMAL APPEARANCE (NORMAL) 10/22/20 09:52 RBC Morph Micro Appear NORMAL APPEARANCE (NORMAL) 10/22/20 09:52 Sodium 137 mmol/L (135-145) 10/23/20 05:14 Potassium 3.7 mmol/L (3.5-5.0) 10/23/20 05:14 Chloride 103 mmol/L (101-111) 10/23/20 05:14 Carbon Dioxide 23 mmol/L (21-32) 10/23/20 05:14 Anion Gap 11.0 (6-13) 10/23/20 05:14 BUN 10 mg/dL (6-20) 10/23/20 05:14 Creatinine 0.7 mg/dL (0.6-1.2) 10/23/20 05:14 Estimated GFR (MDRD) 107 (>89) 10/23/20 05:14 Glucose 130 mg/dL (70-100) H 10/23/20 05:14 Lactic Acid 1.7 mmol/L (0.5-2.2) 10/22/20 14:53 Calcium 9.1 mg/dL (8.5-10.3) 10/23/20 05:14 Total Bilirubin 2.3 mg/dL (0.2-1.0) H 10/22/20 09:52 AST 96 IU/L (10-42) H 10/22/20 09:52 ALT 55 IU/L (10-60) 10/22/20 09:52 Alkaline Phosphatase 55 IU/L (42-121) 10/22/20 09:52 Ammonia 16.9 umol/L (7-35) 10/22/20 15:46 Total Creatine Kinase 1821 IU/L (22-269) H* 10/23/20 05:14 Troponin I High Sens 35.1 ng/L (2.3-19.7) H* 10/22/20 14:53 Total Protein 7.2 g/dL (6.7-8.2) 10/22/20 09:52 Albumin 4.4 g/dL (3.2-5.5) 10/22/20 09:52 Globulin 2.8 g/dL (2.1-4.2) 10/22/20 09:52 Albumin/Globulin Ratio 1.6 (1.0-2.2) 10/22/20 09:52 Lipase 26 U/L (22-51) 10/22/20 09:52 TSH 5.08 uIU/mL (0.34-5.60) 10/22/20 14:43 Urine Color YELLOW 10/22/20 12:15 Urine Clarity CLEAR (CLEAR) 10/22/20 12:15 Urine pH 6.0 PH (5.0-7.5) 10/22/20 12:15 Ur Specific [place] 1.025 (1.002-1.030) 10/22/20 12:15 Urine Protein TRACE mg/dL (NEGATIVE) 10/22/20 12:15 Urine Glucose (UA) NEGATIVE mg/dL (NEGATIVE) 10/22/20 12:15 Urine Ketones >=80 mg/dL (NEGATIVE) H 10/22/20 12:15 Urine Occult Blood MODERATE (NEGATIVE) H 10/22/20 12:15 Urine Nitrite NEGATIVE (NEGATIVE) 10/22/20 12:15 Urine Bilirubin NEGATIVE (NEGATIVE) 10/22/20 12:15 Urine Urobilinogen 0.2 (NORMAL) E.U./dL (NORMAL) 10/22/20 12:15 Ur Leukocyte Esterase NEGATIVE (NEGATIVE) 10/22/20 12:15 Urine RBC 6-10 /HPF (0-5) H 10/22/20 12:15 Urine WBC 0-3 /HPF (0-3) 10/22/20 12:15 Ur Squamous Epith Cells NONE SEEN (<= Few) 10/22/20 12:15 Urine Bacteria Rare /HPF (None Seen) 10/22/20 12:15 Ur Microscopic Review INDICATED 10/22/20 12:15 Urine Culture Comments NOT INDICATED 10/22/20 12:15 Nasal Adenovirus (PCR) NOT DETECTED 10/22/20 11:16 Nasal B. parapertussis DNA (PCR) DETECTED A 10/22/20 11:16 Nasal Coronavir 229E PCR NOT DETECTED 10/22/20 11:16 Nasal Coronavir HKU1 PCR NOT DETECTED 10/22/20 11:16 Nasal Coronavir NL63 PCR NOT DETECTED 10/22/20 11:16 Nasal Coronavir OC43 PCR NOT DETECTED 10/22/20 11:16 Nasal Enterovir/Rhinovir PCR NOT DETECTED 10/22/20 11:16 Nasal Influenza B PCR NOT DETECTED 10/22/20 11:16 Nasal Influenza A PCR NOT DETECTED 10/22/20 11:16 Nasal Parainfluen 1 PCR NOT DETECTED 10/22/20 11:16 Nasal Parainfluen 2 PCR NOT DETECTED 10/22/20 11:16 Nasal Parainfluen 3 PCR NOT DETECTED 10/22/20 11:16 Nasal Parainfluen 4 PCR NOT DETECTED 10/22/20 11:16 Nasal RSV (PCR) NOT DETECTED 10/22/20 11:16 Nasal B.pertussis DNA PCR NOT DETECTED 10/22/20 11:16 Nasal C.pneumoniae (PCR) NOT DETECTED 10/22/20 11:16 Brown Human Metapneumo PCR NOT DETECTED 10/22/20 11:16 Nasal M.pneumoniae (PCR) NOT DETECTED 10/22/20 11:16 Nasal SARS-CoV-2 (PCR) NOT DETECTED 10/22/20 11:16 - Procedures Procedures: Procedures HIP BEARING SURFACE, [id number] (08/29/14) TOTAL HIP REPLACEMENT (08/29/14)
--- NOTE | 2020-10-23 14:44 | ADVANCE CARE PLANNING NOTE ---
Advance Care Planning - Planning Encounter Date: 10/23/20 Time: 14:00 Purpose: To confirm his Code Blue wishes and sign a POLST form, while DPRONI is in the room. Parties in Attendance: I spoke to the patient who was in his bed, the DPOA Anam was at the bedside. Decisional Capacity of the Patient: He appears to have some decision-making capacity regarding potential outcomes and medical decisions however he cannot remember backward, has a poor memory. Both the DPOA explained to him what CODE BLUE means and resuscitation means. he seemed to understand. I then repeated to the patient and DPOA present, what the patient told the Hospitalist that admitted him last evening, which was to be DNR. - Diagnosis for Encounter (1) Collapse Summary: Patient was found on the ground in his condo, by his neighbor, and he does not know how long he had been there or how he got there. He told the admitting doctor the last thing he remembered was running after his cat in the house which made him tired and he laid down. We have found the patient to be dehydrated and with rhabdomyolysis and possible respiratory infection. - Encounter Subjective/Patient's Story: Patient was found on the ground in his condo, by his neighbor, and he does not know how long he had been there or how he got there. He told the admitting doc tor the last thing he remembered was running after his cat in the house which made him tired and he laid down. We have found the patient to be dehydrated and with rhabdomyolysis and possible respiratory infection. Patient tells me he has no significant PMH, takes no meds. The DPOA gave assistance and reported that there is a past history of surgeries after trauma, history of hypertension but confirmed that the patient probably is on no medications. Objective/Medical Story: As above and he was clinically dehydrated and labs confirmed this. He has improved after 1 day of IV antibiotics. The respiratory panel showed he is positive for Bordetella parapertussis. Antibx has been started for this. Labs also showed rhabdomyolysis and he has been made Inpatient status now. Goals of Care: Patient wants to get better and is happy to join his at the assisted living facility which the DPOA is offering to have arranged after this discharge. The DPOA reports that the patient was still driving a car. He will have to undergo a cognitive eval as I suspect there is dementia and that he will no longer be permitted to drive. There are no signs of orthostasis but his blood pressure is borderline elevated and he carries a history of hypertension. He is on no meds for this currently. Will determine if after IV hydration, blood pressure meds need to be resumed. The DPOA and the patient reported that if there is a chance of recovery after going through CPR, shock or ventilator management, he would like to be a full code. Plan: I repeated the discussion that was obtained at admission, regarding choice of DNR status. The patient clearly repeated that he wanted to have full CODE STATUS. A POLST form will be written out, signed and dated and orders in the EMR will be changed to full code/ ATTEMPT RESUSCITATION. Code Status: Attempt Resuscitation Time spent on advance care plannin min
[2020-10-23] MEDS: LIQUOR 50 ML BOTTLE PO SCH (17:20)
[2020-10-24] MEDS: LACTATED RINGERS 1,000 ML IV SCH (03:54)
[2020-10-24 05:13] LABS: CALCIUM 8.6 mg/dL (8.5-10.3); CREATININE 0.7 mg/dL (0.6-1.2); MAGNESIUM 1.3 mg/dL (1.7-2.8); POTASSIUM 3.2 mmol/L (3.5-5.0)
[2020-10-24] MEDS ORDERED: POTASSIUM CHLORIDE 20 MEQ TABLET PO ONE (08:00)
[2020-10-24] MEDS ORDERED: POTASSIUM CHLOR 10 MEQ/100 ML 10 MEQ/100 ML BAG IV ONE (08:00)
--- NOTE | 2020-10-24 08:06 | PROVIDER PROGRESS NOTE ---
Assessment/Plan - Problem List (1) Rhabdomyolysis Assessment/Plan: Serum CK has decreased down to 1600 today. Continue to treat with IV fluids, will change LR to NS. Follow serum CK daily. (2) Bordetella parapertussis infection Assessment/Plan: He has a cough, and is unaware of it. He was started on Zithromax for treatment. Respiratory isolation is ordered. Kathy Wilson, infection loss prevention/safety district manager, was notified yesterday and she says GABY will be notified. (3) Collapse Assessment/Plan: We have seen no dysrhythmias on telemetry here. The Echo shows preserved LVEF and no Aortic stenosis. The collapse was probably caused by dehydration and possibly a coughing spell causing vagotonia. It was unwitnessed. His neighbor found him on the floor. No seizure was seen but he had lost control of his urinary bladder. We will continue to monitor on telemetry while he is here. Orthostatics have been unremarkable. He will be evaluated by PT today. (4) Dehydration Assessment/Plan: Labs still show signs of dehydration with low sodium. Continue with gentle IV hydration. LR will be changed to NS (5) Hyponatremia Assessment/Plan: Will change his LR at 200/hr to NS at 125/hr. Follow BMP daily. (6) Hypokalemia Assessment/Plan: Related to poor intake most likely. We will replace potassium. Follow BMP daily (7) Hypomagnesemia Assessment/Plan: Related to poor intake most likely. We will replace Mg. Follow Mg daily (8) Dementia Assessment/Plan: He could not remember his PCP. Our seismograph chief investigated and found that he was last seen by Dr. Mendez in July 2019. The patient had OT evaluation and scored 14/30 on his cognitive eval indicating moderate to severe dementia. The DPOA had seen his poor cognitive function yesterday, at bedside while the DPOA (step-son Vazquez) was here. The plan is for disposition at an assisted living facility and not to return to his condo, and the DPOA will transport the pt by POV when ready for discharge. - Current Meds Current Meds: Current Medications Generic Name Dose Route Start Last Admin Trade Name Freq PRN Reason Stop Dose Admin Alcohol 10 ml 10/23/20 18:00 10/23/20 17:20 Liquor 50 Ml Bottle PO 10 ml 1800 STEVE Administration Enoxaparin Sodium 40 mg 10/23/20 09:00 10/23/20 08:49 Enoxaparin 40 Mg/0.4 Ml Syringe SUBQ 40 mg DAILY STEVE Administration Sodium Chloride 10 ml 10/22/20 17:00 10/23/20 23:45 Sodium Chloride Flush 0.9% 10 Ml Syringe IVP 10 ml 0100,0900,1700 STEVE Administration - Lab Result Fish Bone Diagrams: 10/23/20 05:14 10/24/20 04:35 - Additional Planning My Orders: My Active Orders 10/23/20 Lunch DIET [Soft Mechanical Diet] [DIET] 10/23/20 18:00 Liquor 10 ml PO 1800 10/24/20 04:35 CK- CREATINE KINASE [CHEM] Routine 10/24/20 08:00 Potassium Chlor 10 Meq/100 ml [Potassium Chloride] 10 meq in 100 ml IV ONCE Potassium Chloride [K-Dur] 20 meq PO ONCE ONE 10/24/20 09:00 Azithromycin [Zithromax] 250 mg PO DAILY NS 0.9% @ 125 mls/hr Sodium Chloride 0.9% [Normal Saline 0.9%] 1,000 ml IV 125 mls/hr 10/25/20 05:00 BMP - BASIC METABOLIC PANEL [CHEM] DAILYLAB CK- CREATINE KINASE [CHEM] DAILYLAB 10/26/20 05:00 CK- CREATINE KINASE [CHEM] DAILYLAB Subjective - Subjective Patient Reports: Resting Comfortably, No Complaints Objective Vital Signs: Vital Signs - 24 hr 10/23/20 10/23/20 10/24/20 11:32 15:35 01:16 Temperature 36.4 C L 36.4 C L 36.8 C Heart Rate [ 63 72 68 Brachial] Respiratory 18 18 14 Rate Blood Pressure 131/71 H 155/82 H 155/87 H [Right Brachial artery] O2 Saturation 100 99 100 Oxygen O2 Source Room air I&O (Last 24 Hrs): Intake and Output Totals x24h 10/22/20 10/23/20 10/24/20 23:59 23:59 23:59 Intake Total 2378 5230 1000 Output Total 300 1000 Balance 2078 4230 1000 General: Alert, No acute distress HEENT: Atraumatic, EOMI Neck: Supple, No JVD Neuro: Alert, Disoriented, Non Focal Cardiovascular: Regular rate, No murmurs Respiratory: No respiratory distress Abdomen: Soft (Obese) Extremities: No edema - Results Results: Laboratory Results WBC 7.1 x10^3/uL (4.8-10.8) 10/23/20 05:14 RBC 3.75 10^6/uL (4.70-6.10) L 10/23/20 05:14 Hgb 13.6 g/dL (14.0-18.0) L 10/23/20 05:14 Hct 38.2 % (42.0-52.0) L 10/23/20 05:14 MCV 101.9 fL (80.0-94.0) H 10/23/20 05:14 MCH 36.3 pg (27.0-31.0) H 10/23/20 05:14 MCHC 35.6 g/dL (32.0-36.0) 10/23/20 05:14 RDW 13.5 % (12.0-15.0) 10/23/20 05:14 Plt Count 146 10^3/uL (130-450) 10/23/20 05:14 MPV 9.5 fL (7.4-11.4) 10/23/20 05:14 Neut # (Auto) 5.3 10^3/uL (1.5-6.6) 10/23/20 05:14 Lymph # (Auto) 1.2 10^3/uL (1.5-3.5) L 10/23/20 05:14 [place]cdonald # (Auto) 0.5 10^3/uL (0.0-1.0) 10/23/20 05:14 Eos # (Auto) 0.0 10^3/uL (0.0-0.7) 10/23/20 05:14 Baso # (Auto) 0.0 10^3/uL (0.0-0.1) 10/23/20 05:14 Absolute Nucleated RBC 0.00 x10^3/uL 10/23/20 05:14 Band Neuts % (Manual) Not Reportable 10/22/20 09:52 Abnorm Lymph % (Manual) Not Reportable 10/22/20 09:52 Nucleated RBC % 0.0 /100WBC 10/23/20 05:14 Neutrophils # (Manual) Not Reportable 10/22/20 09:52 Lymphocytes # (Manual) Not Reportable 10/22/20 09:52 Monocytes # (Manual) Not Reportable 10/22/20 09:52 Eosinophils # (Manual) Not Reportable 10/22/20 09:52 Basophils # (Manual) Not Reportable 10/22/20 09:52 Differential Comment MANUAL=AUTO DIFF 10/22/20 09:52 Manual Slide Review Indicated 10/22/20 09:52 Platelet Estimate NORMAL (130-450,000) (NORMAL) 10/22/20 09:52 Platelet Morphology NORMAL APPEARANCE (NORMAL) 10/22/20 09:52 RBC Morph Micro Appear NORMAL APPEARANCE (NORMAL) 10/22/20 09:52 Sodium 134 mmol/L (135-145) L 10/24/20 04:35 Potassium 3.2 mmol/L (3.5-5.0) L 10/24/20 04:35 Chloride 97 mmol/L (101-111) L 10/24/20 04:35 Carbon Dioxide 27 mmol/L (21-32) 10/24/20 04:35 Anion Gap 10.0 (6-13) 10/24/20 04:35 BUN 7 mg/dL (6-20) 10/24/20 04:35 Creatinine 0.7 mg/dL (0.6-1.2) 10/24/20 04:35 Estimated GFR (MDRD) 107 (>89) 10/24/20 04:35 Glucose 119 mg/dL (70-100) H 10/24/20 04:35 Lactic Acid 1.7 mmol/L (0.5-2.2) 10/22/20 14:53 Calcium 8.6 mg/dL (8.5-10.3) 10/24/20 04:35 Magnesium 1.3 mg/dL (1.7-2.8) L 10/24/20 04:35 Total Bilirubin 2.3 mg/dL (0.2-1.0) H 10/22/20 09:52 AST 96 IU/L (10-42) H 10/22/20 09:52 ALT 55 IU/L (10-60) 10/22/20 09:52 Alkaline Phosphatase 55 IU/L (42-121) 10/22/20 09:52 Ammonia 16.9 umol/L (7-35) 10/22/20 15:46 Total Creatine Kinase 1821 IU/L (22-269) H* 10/23/20 05:14 Troponin I High Sens 35.1 ng/L (2.3-19.7) H* 10/22/20 14:53 Total Protein 7.2 g/dL (6.7-8.2) 10/22/20 09:52 Albumin 4.4 g/dL (3.2-5.5) 10/22/20 09:52 Globulin 2.8 g/dL (2.1-4.2) 10/22/20 09:52 Albumin/Globulin Ratio 1.6 (1.0-2.2) 10/22/20 09:52 Lipase 26 U/L (22-51) 10/22/20 09:52 TSH 5.08 uIU/mL (0.34-5.60) 10/22/20 14:43 Urine Color YELLOW 10/22/20 12:15 Urine Clarity CLEAR (CLEAR) 10/22/20 12:15 Urine pH 6.0 PH (5.0-7.5) 10/22/20 12:15 Ur Specific [place] 1.025 (1.002-1.030) 10/22/20 12:15 Urine Protein TRACE mg/dL (NEGATIVE) 10/22/20 12:15 Urine Glucose (UA) NEGATIVE mg/dL (NEGATIVE) 10/22/20 12:15 Urine Ketones >=80 mg/dL (NEGATIVE) H 10/22/20 12:15 Urine Occult Blood MODERATE (NEGATIVE) H 10/22/20 12:15 Urine Nitrite NEGATIVE (NEGATIVE) 10/22/20 12:15 Urine Bilirubin NEGATIVE (NEGATIVE) 10/22/20 12:15 Urine Urobilinogen 0.2 (NORMAL) E.U./dL (NORMAL) 10/22/20 12:15 Ur Leukocyte Esterase NEGATIVE (NEGATIVE) 10/22/20 12:15 Urine RBC 6-10 /HPF (0-5) H 10/22/20 12:15 Urine WBC 0-3 /HPF (0-3) 10/22/20 12:15 Ur Squamous Epith Cells NONE SEEN (<= Few) 10/22/20 12:15 Urine Bacteria Rare /HPF (None Seen) 10/22/20 12:15 Ur Microscopic Review INDICATED 10/22/20 12:15 Urine Culture Comments NOT INDICATED 10/22/20 12:15 Nasal Adenovirus (PCR) NOT DETECTED 10/22/20 11:16 Nasal B. parapertussis DNA (PCR) DETECTED A 10/22/20 11:16 Nasal Coronavir 229E PCR NOT DETECTED 10/22/20 11:16 Nasal Coronavir HKU1 PCR NOT DETECTED 10/22/20 11:16 Nasal Coronavir NL63 PCR NOT DETECTED 10/22/20 11:16 Nasal Coronavir OC43 PCR NOT DETECTED 10/22/20 11:16 Nasal Enterovir/Rhinovir PCR NOT DETECTED 10/22/20 11:16 Nasal Influenza B PCR NOT DETECTED 10/22/20 11:16 Nasal Influenza A PCR NOT DETECTED 10/22/20 11:16 Nasal Parainfluen 1 PCR NOT DETECTED 10/22/20 11:16 Nasal Parainfluen 2 PCR NOT DETECTED 10/22/20 11:16 Nasal Parainfluen 3 PCR NOT DETECTED 10/22/20 11:16 Nasal Parainfluen 4 PCR NOT DETECTED 10/22/20 11:16 Nasal RSV (PCR) NOT DETECTED 10/22/20 11:16 Nasal B.pertussis DNA PCR NOT DETECTED 10/22/20 11:16 Nasal C.pneumoniae (PCR) NOT DETECTED 10/22/20 11:16 Brown Human Metapneumo PCR NOT DETECTED 10/22/20 11:16 Nasal M.pneumoniae (PCR) NOT DETECTED 10/22/20 11:16 Nasal SARS-CoV-2 (PCR) NOT DETECTED 10/22/20 11:16 - Procedures Procedures: Procedures HIP BEARING SURFACE, [id number] (08/29/14) TOTAL HIP REPLACEMENT (08/29/14)
[2020-10-24] MEDS: SODIUM CHLORIDE 0.9% 1,000 ML IV SCH ×2 (08:56→17:50)
[2020-10-24] MEDS: SODIUM CHLORIDE FLUSH 0.9% 10 ML SYRINGE IVP SCH ×2 (08:56→17:51)
[2020-10-24] MEDS: ENOXAPARIN 40 MG/0.4 ML SYRINGE SUBQ SCH (08:57)
[2020-10-24] MEDS: AZITHROMYCIN 250 MG TABLET PO SCH (08:57)
[2020-10-24] MEDS ORDERED: MAGNESIUM SULFATE 1 GM in SODIUM CHLORIDE 0.9% 50 ML IV ONE (09:12)
[2020-10-24] MEDS ORDERED: MAGNESIUM SULFATE 2 GRAM 2 GM/50 ML BAG IV ONE (10:00)
[2020-10-24] MEDS: LIQUOR 50 ML BOTTLE PO SCH (17:51)
[2020-10-25] MEDS: SODIUM CHLORIDE FLUSH 0.9% 10 ML SYRINGE IVP SCH ×3 (00:06→19:22)
[2020-10-25] MEDS: SODIUM CHLORIDE 0.9% 1,000 ML IV SCH ×3 (01:58→19:22)
[2020-10-25 04:58] LABS: CALCIUM 8.6 mg/dL (8.5-10.3); CREATININE 0.7 mg/dL (0.6-1.2); MAGNESIUM 1.7 mg/dL (1.7-2.8); POTASSIUM 3.1 mmol/L (3.5-5.0)
[2020-10-25] MEDS ORDERED: POTASSIUM CHLORIDE 20 MEQ TABLET PO ONE (06:52)
[2020-10-25] MEDS ORDERED: MAGNESIUM OXIDE 400 MG TABLET PO ONE (07:00)
[2020-10-25] MEDS ORDERED: POTASSIUM CHLOR 10 MEQ/100 ML 10 MEQ/100 ML BAG IV ONE (08:20)
[2020-10-25] MEDS: AZITHROMYCIN 250 MG TABLET PO SCH ×2 (08:26→08:27)
[2020-10-25] MEDS: ENOXAPARIN 40 MG/0.4 ML SYRINGE SUBQ SCH (08:27)
--- NOTE | 2020-10-25 09:05 | XRAY Report ---
PROCEDURE: Chest 1 View X-Ray INDICATIONS: Cough, Bordetella parapertussis found TECHNIQUE: One view of the chest was acquired. COMPARISON: 10/22/2020 FINDINGS: Surgical changes and devices: None. Lungs and pleura: No pleural effusions or pneumothorax. Lungs are clear. Mediastinum: Mediastinal contours appear normal. Heart size is normal. Bones and chest wall: No suspicious bony lesions. Overlying soft tissues appear unremarkable. IMPRESSION: No acute cardiopulmonary disease process. Reviewed by: Hayley Gutierrez MD, PhD on 10/25/2020 9:04 AM PDT Approved by: Hayley Gutierrez MD, PhD on 10/25/2020 9:04 AM PDT Station ID: [id number]
--- NOTE | 2020-10-25 09:15 | PROVIDER PROGRESS NOTE ---
Assessment/Plan - Problem List (1) Rhabdomyolysis Assessment/Plan: CK is down to 800's. Expect continued further improvement. Hopefully he can be discharged tomorrow. (2) Bordetella parapertussis infection Assessment/Plan: He is on Day #3 of a 5 day course. A CXR was done today, to check for blossoming infiltrate, after several days of iv fluids. There is no infiltrate seen. This is a bronchitis infection, therefore. He is in resp isolation here, and the [facility] will have him in empiric isolation for his first 10 days, per [facility] staff member telling me that yesterday. (3) Collapse Assessment/Plan: Etiology was most likely orthostasis from dehydration. His orthostatic vital signs are normal and telemetry has been normal. He is continuing on telemetry and on IV hydration until he is discharged because of the rhabdomyolysis. Will discontinue orthostatic vital sign checks. PT is evaluating him here and recommend some physical therapy rehab at the [facility]. Will order outpatient PT at the [facility]. (4) Dehydration Assessment/Plan: Clinically he is not dehydrated and labs are improved however there are electrolyte abnormalities that need replacement, likely from poor intake which h ad led up to the dehydration. (5) Hyponatremia Assessment/Plan: His IV fluids were changed yesterday. Follow BMP daily (6) Hypokalemia Assessment/Plan: Replace p.o. and IV. We will recheck this afternoon in order to determine if he needs a daily oral potassium replacement. Follow BMP daily (7) Hypomagnesemia Assessment/Plan: Replace and follow magnesium daily (8) Dementia Assessment/Plan: He scored 14/30 on a cognitive eval. I let the step-son and DPOA, Vazquez, know this result last time we spoke on the phone. There are no behavioral disturbances. Is curable and carries on a conversation and follows directions but has very poor short-term memory. PT is evaluating him here and recommend some physical therapy rehab at the [facility]. Will order outpatient PT at the [facility]. - Current Meds Current Meds: Current Medications Generic Name Dose Route Start Last Admin Trade Name Freq PRN Reason Stop Dose Admin Alcohol 10 ml 10/23/20 18:00 10/24/20 17:51 Liquor 50 Ml Bottle PO Not Given 1800 STEVE Azithromycin 250 mg 10/24/20 09:00 10/25/20 08:27 Azithromycin 250 Mg Tablet PO 10/27/20 23:00 250 mg DAILY STEVE Administration Enoxaparin Sodium 40 mg 10/23/20 09:00 10/25/20 08:27 Enoxaparin 40 Mg/0.4 Ml Syringe SUBQ 40 mg DAILY STEVE Administration Sodium Chloride 1,000 mls @ 125 mls/hr 10/24/20 09:00 10/25/20 01:58 Normal Saline 0.9% IV 125 mls/hr .Q8H STEVE Administration Potassium Chloride 10 meq in 100 mls @ 100 mls/hr 10/25/20 08:20 10/25/20 08:52 Potassium Chloride IV 10/25/20 09:19 100 mls/hr ONCE ONE Administration Sodium Chloride 10 ml 10/22/20 17:00 10/25/20 00:06 Sodium Chloride Flush 0.9% 10 Ml Syringe IVP 10 ml 0100,0900,1700 STEVE Administration - Lab Result Fish Bone Diagrams: 10/23/20 05:14 10/25/20 04:28 - Additional Planning My Orders: My Active Orders 10/24/20 09:00 Azithromycin [Zithromax] 250 mg PO DAILY Sodium Chloride 0.9% [Normal Saline 0.9%] 1,000 ml IV 125 mls/hr 10/24/20 13:02 Shower [RC] PRN 10/25/20 COVID-19 REFERENCE TEST Routine 10/25/20 08:20 Potassium Chlor 10 Meq/100 ml [Potassium Chloride] 10 meq in 100 ml IV ONCE 10/25/20 16:00 POTASSIUM [CHEM] Timed 10/26/20 05:00 CK- CREATINE KINASE [CHEM] DAILYLAB Subjective - Subjective Patient Reports: Resting Comfortably, No Complaints Objective Vital Signs: Vital Signs - 24 hr 10/24/20 10/24/20 10/24/20 11:15 13:30 16:06 Temperature 36.6 C Heart Rate [ 75 Activity] Heart Rate [ 90 Brachial] Respiratory 18 Rate Blood Pressure 145/85 H [Activity] Blood Pressure 133/88 H [Right Brachial artery] O2 Saturation 98 98 10/24/20 10/25/20 10/25/20 17:09 00:27 07:43 Temperature 36.5 C 36.5 C Heart Rate [ Activity] Heart Rate [ 67 63 Brachial] Respiratory 18 16 Rate Blood Pressure [Activity] Blood Pressure 135/79 H 149/78 H 150/88 H [Right Brachial artery] O2 Saturation 94 98 Oxygen O2 Source Room air I&O (Last 24 Hrs): Intake and Output Totals x24h 10/23/20 10/24/20 10/25/20 23:59 23:59 23:59 Intake Total 5230 4457.5 912.5 Output Total 1000 2425 500 Balance 4230 2032.5 412.5 General: Alert HEENT: Mucous membr. moist/pink Neck: Supple, No JVD Neuro: Alert, Disoriented Cardiovascular: Regular rate Respiratory: No respiratory distress Abdomen: Soft (Obese with pannus) Extremities: No edema - Results Results: Laboratory Results WBC 7.1 x10^3/uL (4.8-10.8) 10/23/20 05:14 RBC 3.75 10^6/uL (4.70-6.10) L 10/23/20 05:14 Hgb 13.6 g/dL (14.0-18.0) L 10/23/20 05:14 Hct 38.2 % (42.0-52.0) L 10/23/20 05:14 MCV 101.9 fL (80.0-94.0) H 10/23/20 05:14 MCH 36.3 pg (27.0-31.0) H 10/23/20 05:14 MCHC 35.6 g/dL (32.0-36.0) 10/23/20 05:14 RDW 13.5 % (12.0-15.0) 10/23/20 05:14 Plt Count 146 10^3/uL (130-450) 10/23/20 05:14 MPV 9.5 fL (7.4-11.4) 10/23/20 05:14 Neut # (Auto) 5.3 10^3/uL (1.5-6.6) 10/23/20 05:14 Lymph # (Auto) 1.2 10^3/uL (1.5-3.5) L 10/23/20 05:14 [place] # (Auto) 0.5 10^3/uL (0.0-1.0) 10/23/20 05:14 Eos # (Auto) 0.0 10^3/uL (0.0-0.7) 10/23/20 05:14 Baso # (Auto) 0.0 10^3/uL (0.0-0.1) 10/23/20 05:14 Absolute Nucleated RBC 0.00 x10^3/uL 10/23/20 05:14 Band Neuts % (Manual) Not Reportable 10/22/20 09:52 Abnorm Lymph % (Manual) Not Reportable 10/22/20 09:52 Nucleated RBC % 0.0 /100WBC 10/23/20 05:14 Neutrophils # (Manual) Not Reportable 10/22/20 09:52 Lymphocytes # (Manual) Not Reportable 10/22/20 09:52 Monocytes # (Manual) Not Reportable 10/22/20 09:52 Eosinophils # (Manual) Not Reportable 10/22/20 09:52 Basophils # (Manual) Not Reportable 10/22/20 09:52 Differential Comment MANUAL=AUTO DIFF 10/22/20 09:52 Manual Slide Review Indicated 10/22/20 09:52 Platelet Estimate NORMAL (130-450,000) (NORMAL) 10/22/20 09:52 Platelet Morphology NORMAL APPEARANCE (NORMAL) 10/22/20 09:52 RBC Morph Micro Appear NORMAL APPEARANCE (NORMAL) 10/22/20 09:52 Sodium 137 mmol/L (135-145) 10/25/20 04:28 Potassium 3.1 mmol/L (3.5-5.0) L 10/25/20 04:28 Chloride 97 mmol/L (101-111) L 10/25/20 04:28 Carbon Dioxide 27 mmol/L (21-32) 10/25/20 04:28 Anion Gap 13.0 (6-13) 10/25/20 04:28 BUN 6 mg/dL (6-20) 10/25/20 04:28 Creatinine 0.7 mg/dL (0.6-1.2) 10/25/20 04:28 Estimated GFR (MDRD) 107 (>89) 10/25/20 04:28 Glucose 115 mg/dL (70-100) H 10/25/20 04:28 Lactic Acid 1.7 mmol/L (0.5-2.2) 10/22/20 14:53 Calcium 8.6 mg/dL (8.5-10.3) 10/25/20 04:28 Magnesium 1.7 mg/dL (1.7-2.8) 10/25/20 04:28 Total Bilirubin 2.3 mg/dL (0.2-1.0) H 10/22/20 09:52 AST 96 IU/L (10-42) H 10/22/20 09:52 ALT 55 IU/L (10-60) 10/22/20 09:52 Alkaline Phosphatase 55 IU/L (42-121) 10/22/20 09:52 Ammonia 16.9 umol/L (7-35) 10/22/20 15:46 Total Creatine Kinase 812 IU/L (22-269) H 10/25/20 04:28 Troponin I High Sens 35.1 ng/L (2.3-19.7) H* 10/22/20 14:53 Total Protein 7.2 g/dL (6.7-8.2) 10/22/20 09:52 Albumin 4.4 g/dL (3.2-5.5) 10/22/20 09:52 Globulin 2.8 g/dL (2.1-4.2) 10/22/20 09:52 Albumin/Globulin Ratio 1.6 (1.0-2.2) 10/22/20 09:52 Lipase 26 U/L (22-51) 10/22/20 09:52 TSH 5.08 uIU/mL (0.34-5.60) 10/22/20 14:43 Urine Color YELLOW 10/22/20 12:15 Urine Clarity CLEAR (CLEAR) 10/22/20 12:15 Urine pH 6.0 PH (5.0-7.5) 10/22/20 12:15 Ur Specific [place] 1.025 (1.002-1.030) 10/22/20 12:15 Urine Protein TRACE mg/dL (NEGATIVE) 10/22/20 12:15 Urine Glucose (UA) NEGATIVE mg/dL (NEGATIVE) 10/22/20 12:15 Urine Ketones >=80 mg/dL (NEGATIVE) H 10/22/20 12:15 Urine Occult Blood MODERATE (NEGATIVE) H 10/22/20 12:15 Urine Nitrite NEGATIVE (NEGATIVE) 10/22/20 12:15 Urine Bilirubin NEGATIVE (NEGATIVE) 10/22/20 12:15 Urine Urobilinogen 0.2 (NORMAL) E.U./dL (NORMAL) 10/22/20 12:15 Ur Leukocyte Esterase NEGATIVE (NEGATIVE) 10/22/20 12:15 Urine RBC 6-10 /HPF (0-5) H 10/22/20 12:15 Urine WBC 0-3 /HPF (0-3) 10/22/20 12:15 Ur Squamous Epith Cells NONE SEEN (<= Few) 10/22/20 12:15 Urine Bacteria Rare /HPF (None Seen) 10/22/20 12:15 Ur Microscopic Review INDICATED 10/22/20 12:15 Urine Culture Comments NOT INDICATED 10/22/20 12:15 Nasal Adenovirus (PCR) NOT DETECTED 10/22/20 11:16 Nasal B. parapertussis DNA (PCR) DETECTED A 10/22/20 11:16 Nasal Coronavir 229E PCR NOT DETECTED 10/22/20 11:16 Nasal Coronavir HKU1 PCR NOT DETECTED 10/22/20 11:16 Nasal Coronavir NL63 PCR NOT DETECTED 10/22/20 11:16 Nasal Coronavir OC43 PCR NOT DETECTED 10/22/20 11:16 Nasal Enterovir/Rhinovir PCR NOT DETECTED 10/22/20 11:16 Nasal Influenza B PCR NOT DETECTED 10/22/20 11:16 Nasal Influenza A PCR NOT DETECTED 10/22/20 11:16 Nasal Parainfluen 1 PCR NOT DETECTED 10/22/20 11:16 Nasal Parainfluen 2 PCR NOT DETECTED 10/22/20 11:16 Nasal Parainfluen 3 PCR NOT DETECTED 10/22/20 11:16 Nasal Parainfluen 4 PCR NOT DETECTED 10/22/20 11:16 Nasal RSV (PCR) NOT DETECTED 10/22/20 11:16 Nasal B.pertussis DNA PCR NOT DETECTED 10/22/20 11:16 Nasal C.pneumoniae (PCR) NOT DETECTED 10/22/20 11:16 Brown Human Metapneumo PCR NOT DETECTED 10/22/20 11:16 Nasal M.pneumoniae (PCR) NOT DETECTED 10/22/20 11:16 Nasal SARS-CoV-2 (PCR) NOT DETECTED 10/22/20 11:16 - Procedures Procedures: Procedures HIP BEARING SURFACE, [id number] (08/29/14) TOTAL HIP REPLACEMENT (08/29/14)
[2020-10-25] MEDS: LIQUOR 50 ML BOTTLE PO SCH (20:01)
[2020-10-26] MEDS: SODIUM CHLORIDE FLUSH 0.9% 10 ML SYRINGE IVP SCH ×2 (03:12→07:11)
[2020-10-26] MEDS: SODIUM CHLORIDE 0.9% 1,000 ML IV SCH ×2 (03:20→11:48)
[2020-10-26 04:51] LABS: CALCIUM 8.5 mg/dL (8.5-10.3); CREATININE 0.6 mg/dL (0.6-1.2)
[2020-10-26] MEDS: ENOXAPARIN 40 MG/0.4 ML SYRINGE SUBQ SCH (07:11)
[2020-10-26] MEDS: POTASSIUM CHLOR 10 MEQ/100 ML 10 MEQ/100 ML BAG IV SCH ×4 (07:11→10:15)
[2020-10-26] MEDS: AZITHROMYCIN 250 MG TABLET PO SCH (07:11)
--- NOTE | 2020-10-26 07:43 | Discharge Plan ---
"Discharge Plan for SNF / [facility] - Discharge Plan And Transition Orders Problem Reviewed?: Yes Disposition: SNF DC/Xfer Condition: Stable Allergies and Adverse Reactions: Allergies Allergy/AdvReac Type Severity Reaction Status Date / Time No Known Drug Allergies Allergy Verified 10/22/20 09:32 Health Concerns: The patient was admitted after being found down on the ground of his home by the neighbor, unknown how long he had been there. He was confused. He was found to be in rhabdomyolysis, dehydrated and has baseline confusion due to dementia (he scored 14/30 on a cognitive evaluation done here). The patient needs to stay well-hydrated for the next 1 to 2 weeks because of the rhabdomyolysis. He has Bordetella parapertussis and has 1 more day (on 10/27/2020) of Zithromax antibiotic, left to treat this. He must stay in respiratory isolation for at least through 10/27/2020, or per your protocol. Patient should have outpatient Physical Therapy until he has reached his best functioning potential. Plan of Treatment: As above. Care Goals: Improvement in symptoms and stabilization are the goals. Assessment: Orders were written for the LONG TERM. - SNF / LONG TERM Transition Orders Admit to (Facility): Em Discharge Diagnosis: (1) Collapse Etiology was most likely orthostasis from dehydration. (2) Rhabdomyolysis Improving (3) Dehydration Resolved (4) Bordetella parapertussis infection Completing treatment with Azithromycin (5) Dementia He scored 14/30 on a cognitive eval. There are no behavioral disturbances. He is cuable and carries on a conversation and follows directions but has very poor short-term memory. (6) Hyponatremia Resolved (7) Hypokalemia On oral replacement (8) Hypomagnesemia Replaced Medicare Certification Statement: I certify that Post Hospital intermediate care is medically necessary on a continuing basis for any of the conditions for which she/he is receiving care during hospitalization. Notify PCP of admission and forward orders to primary provider for signature. Other Notification Orders: Call PCP immediately if patient develops dyspnea, chest pain/tightness or edema. House Bowel Program: Yes Additional Bowel Program Orders: If no BM after 2 days, nurse may give M.O.M. 30ml PO PRN and/or ducolax Supp 1 [place] and/or LIZANDRO 250mg P.O., and/or senna 1-2 tabs PO. On day 3 nurse may give repeat above order until residents constipation is resolved. Annual Influenza Vaccine (between Apr 03 and October 31): Yes Two-step PPD per [facility] [phone] or approved exception documents: Yes Treatments & Other Orders: Daily PT Oxygen Orders: None Lab Tests or X-ray Orders: BMP & Mg lab tests on 10/29/20 and Thu11/05/20, to check K & Mg Medication Orders: PLEASE REFER TO THE DISCHARGE MEDICATION LIST. Insulin Orders?: No - Medications New Prescriptions: Potassium Chloride [K-Dur] 20 meq PO 0800 14 Days #14 tablet Azithromycin [Zithromax] 250 mg PO DAILY 1 Days #1 tablet - Diet Type: No added salt Texture: Regular Liquids: Thin May have monthly special meal: Yes - Therapies | Activity Therapy: Evaluation | Treat if indicated: PT Rehabilitation Potential: Maximize functional status Activity: Activity as Tolerated Weight Bearing: Full Weight Assistance Devices: Walker Follow Up: Patient will need new PCP, in [facility]"
--- NOTE | 2020-10-26 07:58 | DISCHARGE SUMMARY ---
Discharge Summary Admit Date: 10/22/20 Discharge Date: 10/26/20 Discharging Provider: Dr Ellen Bonds Primary Care Provider: No PCP Code Status: Attempt Resuscitation Condition at Discharge: Stable Discharge Disposition: SNF DC/Xfer Discharge Facility Name: [facility] History of Present Illness: From the admission H&P of Dr Ludin Salinas: This is a 85-year-old male with a possible past medical history significant for hypertension, who takes no meds. He presents today from home after being found on the ground by his neighbor. History from the patient is limited as he is confused. He tells me that he has "been in the hospital now for about 3 days". He cannot tell me why he is here other than that he is sick. When I tell him that he has only been here for a few hours, he once again is adamant that he has been here for at least 2 to 3 days. He does admit to feeling confused. He reports no chest pain, dyspnea, fever, chills. Denies any abdominal pain, nausea, vomiting, dysuria, urgency. Reports no focal weakness, headache, change in vision. He tells me he has no significant medical history and denies any cardiac disease. He is currently not taking any medications. He denies a history of seizures. He lives at home alone right now as his lives at [facility]. He tells me that he normally is quite active and independent. He still drives. The patient told the ER provider that "when his cat went into the attic this morning, he crawled up there by ladder and developed palpitations and so he stopped to rest and when the palpitations resolved, he went down the ladder to lay on the floor". Neighbor reportedly found him on the floor and when EMS got there, they found him incontinent of urine, weak and confused. In the emergency department, he is found to be afebrile, heart rate in the 70s, blood pressure in the 150s over 80s. He was not tachypneic and saturating well on room air. His labs were significant for a bicarbonate of 16, anion gap of 19. His lactic acid was 2.3. AST was 96 and ALT was 55. His initial troponin was 32.9, then 38. His urinalysis revealed moderate occult blood and 2-10 RBCs. Rapid PCR testing was negative for COVID, but positive for Bordetella parapertussis. His chest x-ray was unremarkable. He underwent a chest CT ang iogram given the appearance of the aorta on chest x-ray and this revealed no acute abnormalities. CT of the head was unremarkable. A CK was > 2500. - HOSPITAL COURSE Hospital Course: (1) Collapse Etiology was most likely orthostasis from dehydration. His troponin levels ruled him out for an [place]. He had an Echo that was unremarkable. Telemetry showed no dysrhythmias. He was not orthostatic after iv fluids were started. (2) Rhabdomyolysis He was started on iv hydration at 125 cc/hr first with LR, then NS and serum CK was monitored daily. It improved from 2570>> 1821>> 1656>> 812>> 313 on the day of discharge. His renal function was never affected. (3) Dehydration He was clinically dehydrated at admission which resolved by getting iv hydration. The elevated lactic acid and anion gap improved quickly. (4) Bordetella parapertussis infection He did have a non-productive cough and was ordered to be in respiratory isolation, since he is considered infectious for 5 days. He was treated with Azithromycin. A repeat CXR before discharge did not show any infiltrate, therefore this was bronchitis. (5) Dementia He scored 14/30 on a cognitive eval. There were no behavioral disturbances. He is cue-able and carries on a conversation and follows directions, but has very poor short-term memory and decision making capacity. His step-son, Vazquez, is his DPOA. A POLST form was completed: patient wishes to be a FULL CODE and have selective treatment. (6) Hyponatremia He was started on iv hydration first with LR, then when serum sodium was 134, fluids were changed to NS and the serum sodium corrected to 137. (7) Hypokalemia He required daily Potassium replacement, probably was total body depleted due to inadequate oral intake, due to dementia and living alone. At discharge, daily oral KCl 20 mEq replacement was ordered for 2 weeks, with BMP lab checks weekly. (8) Hypomagnesemia Mg was 1.3 and it was replaced and dianelys to 1.7. This was also probably due to inadequate oral intake. For after discharge, weekly serum Mg checks were ordered. - ALLERGIES Allergies/Adverse Reactions: Allergies Allergy/AdvReac Type Severity Reaction Status Date / Time No Known Drug Allergies Allergy Verified 10/22/20 09:32 - MEDICATIONS Home Medications: Ambulatory Orders Medication Instructions Recorded Confirmed Azithromycin [Zithromax] 250 mg PO DAILY 1 Days #1 tablet 10/26/20 Potassium Chloride [K-Dur] 20 meq PO 0800 14 Days #14 tablet 10/26/20 - PHYSICAL EXAM AT DISCHARGE General Appearance: positive: No acute distress, Alert Eyes Bilateral: positive: Normal inspection, EOMI ENT: positive: ENT inspection nml, No signs of dehydration Neck: positive: Nml inspection, No JVD Respiratory: positive: No respiratory distress, Breath sounds nml Cardiovascular: positive: Regular rate & rhythm, No murmur Abdomen: positive: Non-tender, No distention, Other (Obese) Skin: positive: Warm, Dry Extremities: positive: Non-tender, No pedal edema Neurologic/Psychiatric: positive: Motor nml, Disoriented to person, Disoriented to place, Disoriented to time - LABS Result Diagrams: 10/23/20 05:14 10/26/20 04:10 - DIAGNOSTIC IMAGING Diagnostic Imaging Results: Final report reviewed - FOLLOW UP Follow Up: Patient had no PCP and will need to establish with a new PCP in [facility], since he will now be living in [place]. - TIME SPENT Time Spent in Discharge (Minutes): 45
[2020-10-26] MEDS ORDERED: POTASSIUM CHLORIDE 20 MEQ TABLET PO ONE (08:00)
[2020-10-26 08:11] VITALS: BP 177/78
== END 2020-10-26 14:00 | disposition home or self-care (01) | DRG 558 ==
LOC: EDUNIT# → ED 09:14 → MS2 15:05 → OBSVTOIN 10-23 10:16
PROVIDERS: ADMIT Internal Medicine; ATTEND Internal Medicine
DX: R41.82 Altered mental status, unspecified (principal); R55 Syncope and collapse; M62.82 Rhabdomyolysis; R77.8 Other specified abnormalities of plasma proteins; A37.10 Whooping cough due to Bordetella parapertussis without pneumonia; E87.1 Hypo-osmolality and hyponatremia; E86.0 Dehydration; F03.90 Unspecified dementia, unspecified severity, without behavioral disturbance, psychotic disturbance, mood disturbance, and anxiety; E87.6 Hypokalemia; E83.42 Hypomagnesemia; I10 Essential (primary) hypertension; E78.00 Pure hypercholesterolemia, unspecified; H54.7 Unspecified visual loss; H91.90 Unspecified hearing loss, unspecified ear; M19.90 Unspecified osteoarthritis, unspecified site; M10.9 Gout, unspecified; G89.29 Other chronic pain; M54.9 Dorsalgia, unspecified; Z91.81 History of falling; Z20.822 Contact with and (suspected) exposure to COVID-19; I25.2 Old myocardial infarction; Z95.5 Presence of coronary angioplasty implant and graft; Z79.82 Long term (current) use of aspirin; Z79.899 Other long term (current) drug therapy
CPT/HCPCS: 36415; 70450; 71045; 71275; 80048; 80053; 81001; 82140; 82550; 83605; 83690; 83735; 84132; 84443; 84484; 85025; 87040; 87631; 93005; 93306; 96360; 96372; 97161; 97166; 97530; 99284; 99285; A9270; G0378; J1650; J7120; Q9967; U0004; 0202U; 81003; 87086